=== PATIENT | male | born 1955 | race Caucasian/White ===

== ENCOUNTER → 2021-10-30 | Day surgery (SDC) | payer MEDICARE, OTHER ==
[~2021-10-30] VITALS: Ht 180.3 cm; Wt 108.9 kg
[~2021-10-30] MED LIST: AMIODARONE HCL200 MG PO; BACLOFEN 10MG T10 MG PO; BACTRIM DS TAB1 EACH PO; COZAAR 25MG TAB25 MG PO; NORVASC5 MG PO; PRAVACHOL20 MG PO; PROTONIX 40MG T40 MG PO; TOPROL XL 50 MG50 MG PO; VICODIN 10/3251 EACH PO; XARELTO10 MG PO
[2021-10-30 08:57] LABS: HCT 41.5 % (42.0-52.0); MCH 31.3 pg (25.0-31.0); MCHC 33.7 g/dL (32.0-36.0); MCV 92.8 fL (78.0-100.0); MPV 9.3 fL (6.0-9.5); RBC 4.47 M/uL (4.70-6.00); RDW 12.3 % (11.5-14.0); WBC 9.2 K/uL (4.0-10.5)
[2021-10-30 12:41] LABS: ALBUMIN 3.7 g/dL (3.4-5.0); BILIRUBIN - TOTAL 0.5 mg/dL (0.2-1.0); BUN/CREAT RATIO (CALC) 13.4 RATIO; CREATININE 0.82 mg/dL (0.67-1.17); GLOBULIN (CALCULATION) 4.1 g/dL; POTASSIUM 4.1 mmol/L (3.5-5.1); TOTAL PROTEIN 7.8 g/dL (6.4-8.2)
== END | disposition home or self-care (01) ==
LOC: FAS 08:15
PROVIDERS: Surgery
DX: K57.30 Diverticulosis of large intestine without perforation or abscess without bleeding (principal); K21.00 Gastro-esophageal reflux disease with esophagitis, without bleeding; K29.70 Gastritis, unspecified, without bleeding; K31.9 Disease of stomach and duodenum, unspecified; I48.91 Unspecified atrial fibrillation; I10 Essential (primary) hypertension; E78.5 Hyperlipidemia, unspecified; J44.9 Chronic obstructive pulmonary disease, unspecified; F17.210 Nicotine dependence, cigarettes, uncomplicated; Z79.01 Long term (current) use of anticoagulants; Z79.899 Other long term (current) drug therapy
CPT/HCPCS: 36415; 80053; J0690; J2250; J2704; J7120